=== PATIENT | female | born 1970 | race Asian ===

== ENCOUNTER 2016-05-23 01:03 | Emergency (ER) | payer OTHER ==
--- NOTE | 2016-05-23 01:53 | ED Physician Chart ---
Chief Complaint/HPI - Patient Information Date Seen:: 05/23/16 Time Seen:: 01:08 Chief Complaint:: dizziness History of Present Illness:: 46-year-old female history of intermittent dizziness, complains of acute, constant, moderate, sensation of dizziness since May 10, 2016. Has associated , sharp, worse with movement, moderate, nonradiating, neck pain. Took ibuprofen which only helped a small amount with the pain. Has been to another local emergency department and her primary care physician for the same problem. Diagnosis was anxiety. Admits to extra stress at work. Allergies:: Allergies Allergy/AdvReac Type Severity Reaction Status Date / Time No Known Allergies Allergy Verified 05/23/16 01:35 Vitals:: Vital Signs - 8 hr 05/23/16 01:05 Temp 97.8 F HR 82 RR 17 BP 140/92 O2 Sat % 99 Historian:: Patient Review:: Nurse's Note Reviewed Review of Systems - Review of Systems Other: Complete system review otherwise unremarkable except as noted in history of present illness. Past Medical History - Past Medical History Past Medical History: Other (anxiety) Family History: None Social History: Non Smoker, No Alcohol, No Drug Use, Employed Surgical History: None Psychiatricy History: None Medication: Reviewed Family Medical History - Family Member Daughter Ethnicity: Non- Living Status: Still Living Physical Exam - Physical Examination Other:: INITIAL VITAL SIGNS: Reviewed by me GENERAL: Alert and interactive. No acute distress HEAD: Head is normocephalic and atraumatic EYES: EOMI. PERRL. No scleral icterus. No conjunctival injection ENT: Moist mucous membranes. NECK: Supple. No masses. Full range of motion RESPIRATORY: No tachypnea. Clear breath sounds bilaterally. No wheezing, rales, or rhonchi CV: Regular rate and rhythm. No murmurs, rubs, or gallops ABDOMEN: Soft, non-distended, non-tender. No guarding. No rebound. No masses. EXTREMITIES: No deformity. No cyanosis. No edema. SKIN: Warm and dry. No obvious rashes. NEUROLOGIC: Alert and oriented. Face is symmetric. Speech is normal. Moves all extremities equally. Motor and sensory distally intact. BACK AND NECK EXAM: Skin: No bruising or rash Compartments: Soft Motor: Normal flexion and extension of bilateral hip/knee/ankle/foot Sensation: Intact to light touch throughout Bones: No midline TTP Labs/Radiology/EKG Results - Radiology Results Results: CT cervical spine without contrast preliminary report per radiology NAD ED Septic Shock - . Is Septic Shock (SBP<90, OR Lactate>4 mmol\L) present?: No - <6hrs of presentation: Vital Signs: Vital Signs - 8 hr 05/23/16 01:05 Temp 97.8 F HR 82 RR 17 BP 140/92 O2 Sat % 99 Reassessment (Disposition) - Reassessment Reassessment:: Blood pressure was noted to be elevated over 120/80. There were no signs of hypertension. Discussed the findings with the patient and recommended that the patient follow up with the primary care physician regarding the elevated blood pressure. Offered to draw blood work and treat pain however patient says that she is seeing her doctor next week and started on blood work. Also does not want any pain medication. Discussed results and CT examined patient. Also discussed physical exam and vital signs being essentially unremarkable. Recommended follow-up PCP for elevated blood pressure without the diagnosis of hypertension. No acute disease. Recommended follow-up with primary care within 1-2 days. Gave return to ER precautions. She says she understands and agrees the plan. Reassessment Condition:: Improved - Diagnosis Diagnosis:: Cervicalgia Elevated blood pressure without diagnosis of hypertension - Patient Disposition Time:: 01:55 Condition at Disposition:: Improved ED Discharge Plan - Patient Disposition Admit/Discharge/Transfer: PT DISCHARGED HOME Condition at Disposition: Improved Additional Instructions: Cervicalgia Follow-up with your primary care physician within one to 2 days
--- NOTE | 2016-05-23 11:31 | Diagnostic Imaging Report ---
CT cervical spine without IV contrast HISTORY: Neck pain COMPARISON: None Technique: Axial images were obtained from the skull base to the upper thoracic spine without IV contrast. Multiplanar reconstructions were made. Total DLP: [id number], [id number] FINDINGS: Images of the cervical spine obtained without contrast demonstrate no evidence of an acute fracture or subluxation. There is asymmetry of the dens to the lateral masses of C1 which on the right measures 1 mm and on the left measures 3 mm. Mild degenerative changes are seen with 2 to 3 mm posterior disc osteophyte complex at C5/C6 causing mild spinal canal narrowing. No prevertebral soft tissue swelling. The lung apices are clear. IMPRESSION: No evidence of acute fracture Mild asymmetry of the dens to the lateral masses of C1. This may be attributed to patient positioning and head rotation. Please correlate clinically. Traumatic etiology cannot be completely excluded. No evidence of subluxation. Degenerative changes at C5/C6. Final results were administered to the referring team on 05/23/2016.
== END 2016-05-23 03:30 | disposition home or self-care (01) ==
LOC: ER 01:03
DX: M54.2 Cervicalgia (principal); R03.0 Elevated blood-pressure reading, without diagnosis of hypertension
CPT/HCPCS: 72125-TC; Z7502